=== PATIENT | male | born 1975 ===

== ENCOUNTER → 2019-10-07 | Emergency (ER) | payer OTHER ==
[~2019-10-07] VITALS: Ht 182.9 cm; Wt 81.6 kg
[~2019-10-07] MED LIST: LORazepam 2MG/ML-1ML VIAL IV ONE; MORPHINE SULFATE 4 MG/ML SYR/VIAL IV ONE; ONDANSETRON HCL 4 MG/2 ML VIAL IV ONE
[2019-10-07 14:00] VITALS: BP 104/71
== END | disposition home or self-care (01) ==
LOC: ER 11:58 → EDBD 11:58 → EEVIPCON 11:58
DX: S02.2XXA Fracture of nasal bones, initial encounter for closed fracture (principal); S00.531A Contusion of lip, initial encounter; Y08.89XA Assault by other specified means, initial encounter; Y93.89 Activity, other specified; Y92.89 Other specified places as the place of occurrence of the external cause; Y99.8 Other external cause status
CPT/HCPCS: 70450; 70486; 71250; 72125; 96374; 96375; 99285; J2060; J2270; J2405